=== PATIENT | female | born 1945 | race Caucasian/White ===

== ENCOUNTER → 2021-06-11 16:00 | Outpatient (CLI) | payer MEDICARE, SELFPAY | PROVIDERS: Family Provider Family Medicine; PCP Family Medicine; Visit Provider Family Medicine | DX: N39.0 Urinary tract infection, site not specified (principal) | CPT/HCPCS: 87086 ==

== ENCOUNTER → 2021-06-25 11:09 | Outpatient (CLI) | payer MEDICARE, SELFPAY ==
[2021-06-25 18:50] LABS: Add Manual Diff / Slide Review NO; Basophils Absolute Auto 100 /uL (0-100); Basophils Percent Auto 1.1 % (0-2); Eosinophils Absolute Auto 100 /uL (0-450); Eosinophils Percent Auto 1.9 % (2-4); Hematocrit 40.8 % (36-46); Hemoglobin 13.8 g/dL (12.0-16.0); Lymphocytes Absolute Auto 1700 /uL (1100-4500); Lymphocytes Percent Auto 24.1 % (25-40); Mean Corpuscular HGB Conc 33.7 % (30-36); Mean Corpuscular Hemoglobin 27.9 PG (26-34); Mean Corpuscular Volume 82.7 fL (80-100); Monocytes Absolute Auto 900 /uL (0-900); Monocytes Percent Auto 12.8 % (3-14); Neutrophils Absolute Auto 4100 /uL (1500-7000); Neutrophils Percent Auto 60.1 % (50-75); Platelet Count 326 X10^3/uL (150-400); Red Blood Cell Count 4.94 X10^6/uL (4.0-5.2); Red Cell Distribution Width 13.7 % (11.6-14.8); White Blood Cell Count 6.9 X10^3/uL (4.5-11.0)
[2021-06-25 18:54] LABS: BUN Creatinine Ratio 21.6 (6-22); Blood Urea Nitrogen 19 mg/dL (7-17); Calcium 9.2 mg/dL (8.4-10.2); Carbon Dioxide 30 mmol/L (22-32); Chloride 103 mmol/L (98-107); Estimated Glomerular Filt Rate > 60 mL/min (>60); Glucose 101 mg/dL (80-110); HEMOLYSIS < 15 (0-50); Potassium 4.3 mmol/L (3.4-5.1); Sodium 137 mmol/L (137-145)
[2021-06-25 19:12] LABS: Vitamin D 25 Hydroxy (D3) 57.6 ng/mL (30.0-100.0)
[2021-06-25 19:24] LABS: Cortisol Random 9.97 ug/dL
[2021-06-25 19:25] LABS: TSH w/ Reflex to FT4 1.37 uIU/mL (0.47-4.68)
[2021-06-25 19:43] LABS: Vitamin B12 725 pg/mL (239-931)
== END ==
PROVIDERS: Family Provider Family Medicine; PCP Family Medicine; Visit Provider Family Medicine
DX: F41.1 Generalized anxiety disorder (principal); R31.21 Asymptomatic microscopic hematuria; F34.1 Dysthymic disorder; Z85.118 Personal history of other malignant neoplasm of bronchus and lung; F30.8 Other manic episodes; F32.9 Major depressive disorder, single episode, unspecified; R53.83 Other fatigue
CPT/HCPCS: 80048; 82306; 82533; 82607; 84443; 85025

== ENCOUNTER 2022-01-19 08:43 | Emergency (ER) | payer MEDICARE, OTHER, SELFPAY ==
[2022-01-19] VITALS (7 sets, daily range): BP systolic 129–154; BP diastolic 63–71; PULSE 75–89; RESP 18–22; TEMP 36.7; O2SAT 96–99; BMI 22.1
--- NOTE | 2022-01-19 09:15 | DI.CT.S_ITS ---
PROCEDURE: CT ANGIO CHEST PE PROTOCOL INDICATIONS: hx of lung CA with RLL removed and SOB TECHNIQUE: After the administration of intravenous contrast, 2 mm thick sections acquired from the pulmonary apices to the posterior costophrenic angles. 3-dimensional maximum intensity projection (MIP) coronal and sagittal reformats were then acquired through the thorax. For radiation dose reduction, the following was used: automated exposure control, adjustment of mA and/or kV according to patient size. COMPARISON: [facility], CR, XR CHEST 2 VIEWS, 04/14/2019, 9:42. FINDINGS: Image quality: Excellent. Pulmonary arteries: Pulmonary arteries are normal in size, and demonstrate no intraluminal filling defects to suggest central pulmonary embolism. Lungs and pleura: Small scattered ground-glass opacities are seen in right lower lung field near right lung base. Mild dependent atelectasis in posterior aspect of left lower lobe is also seen. Reticular nodular thickening in periphery of bilateral lung johnston are noted. No pleural effusions or pneumothorax. Central and peripheral airways are patent. Mediastinum: Heart size is normal, without pericardial effusion. No mediastinal or hilar adenopathy. Thoracic aorta is normal in caliber and enhancement. Esophagus is normal in caliber, without hiatal hernia. Bones and chest wall: No suspicious bony lesions. Ribs and thoracic spine appear intact throughout. Thyroid gland is within normal limits. No axillary or supraclavicular adenopathy. Abdomen: Visualized upper abdominal solid organs appear normal in the early arterial phase of enhancement. IMPRESSION: 1. No evidence of pulmonary emboli. No thoracic aortic aneurysm or dissection. 2. Subtle patchy ground-glass opacities in right lower lung field near right lung base which may represent areas of subtle patchy pneumonitis. Mildly increased reticular nodular markings in periphery of bilateral lung johnston suggestive of mild small airway disease. Dependent atelectasis in posterior aspect of left lung base. No pleural effusion or pneumothorax. Airway is patent. 3. No mediastinal or hilar lymphadenopathy by size criteria. Dictated by: Rosey Kimball M.D. on 01/19/2022 at 10:19 Approved by: Rosey Kimball M.D. on 01/19/2022 at 10:23
--- NOTE | 2022-01-19 09:17 | ED_ITS ---
HPI - General Adult General Chief complaint: Abdominal Pain Stated complaint: right side abdminal pain Time Seen by Provider: 01/19/22 08:52 Source: patient Mode of arrival: Ambulatory History of Present Illness HPI narrative: 76-year-old female. History of lung cancer. Had a right lower lobe removed in 2009. Has had no follow-up since then. Is here for evaluation of right upper quadrant abdominal discomfort/right lower chest discomfort. The discomfort has just started over the past couple days however she states she is had progr essively worsening shortness of breath over the past couple months. She also reports decrease in appetite. No chest pain. No change in bowel habits. No urinary symptoms. No skin changes. Has not tried anything for the symptoms prior to arrival. Related Data Home Medications Medication Instructions Recorded Confirmed aripiprazole 5 mg tablet 10 mg PO DAILY 11/02/21 01/12/22 Previous Rx's Medication Instructions Recorded acetazolamide 125 mg tablet 125 mg PO DAILY #25 tabs 12/21/21 azithromycin 250 mg tablet See Rx Instructions PO .COMPLEX #6 01/19/22 tabs Allergies Allergy/AdvReac Type Severity Reaction Status Date / Time ciprofloxacin [CIPROFLOXACIN] Allergy Mild FROM CIPRO Verified 01/12/22 14:47 XR gentamicin [GENTAMICIN] Allergy Mild Verified 01/12/22 14:47 Sulfa (Sulfonamide Allergy Mild Verified 01/12/22 14:47 Antibiotics) [SULFA (SULFONAMIDE ANTIBIOTICS)] sulfamethoxazole Allergy Mild FROM Verified 01/12/22 14:47 [SULFAMETHOXAZOLE] TRIMETHOPRI..AND SULFAMETHOXAZOLE trimethoprim [TRIMETHOPRIM] Allergy Mild FROM Verified 01/12/22 14:47 SULFAMETHOXAZOLE AND TRIMETHOPRI... adhesive Allergy Verified 01/19/22 09:05 Latex, Natural Rubber Allergy Verified 01/19/22 09:05 albuterol AdvReac Severe heart Verified 01/12/22 14:47 racing hydrocodone AdvReac Severe psychiatric Verified 01/12/22 14:47 reaction diazepam AdvReac Verified 01/19/22 09:05 Review of Systems Constitutional Constitutional: Reports system reviewed and no additional complaints, except as documented Cardiovascular Cardiovascular: Reports system reviewed and no additional complaints, except as documented Respiratory Respiratory: Reports system reviewed and no additional complaints, except as documented Gastrointestinal Gastrointestinal: Reports system reviewed and no additional complaints, except as documented Genitourinary Genitourinary: Reports system reviewed and no additional complaints, except as documented Integumentary/Breasts Skin/Breast: Reports system reviewed and no additional complaints, except as documented Neurologic Neurologic: Reports system reviewed and no additional complaints, except as documented Hematologic/Lymphatic On Anticoagulants: No Patient History Medical History Abnormal Pap smear of cervix (~1979) Allergies Anemia Asthma Cancer Cardiac arrhythmia Encounter for altitude sickness prophylaxis Fibrocystic breast disease Hair loss Hematuria Hemorrhoid Herpes History of urinary incontinence Hypothyroidism (~1963) Kidney stones Measles Mumps Osteoarthritis (~1999) Ovarian cyst Painful menstrual periods (~1958) PID (pelvic inflammatory disease) Plantar warts Positive PPD PTSD (post-traumatic stress disorder) Rheumatic fever (~1950) Rheumatoid arthritis (~1968) Rosacea Tachycardia (~1966) Tinnitus Vertigo Surgical History Anesthesia History of lobectomy of lung (~2009) History of salpingoophorectomy (~1969) History of tonsillectomy and adenoidectomy (~1949) Hx of appendectomy Status post partial removal of lung Family History Mother Stroke Father Kidney disease Cancer Drug interaction Sister Bone cancer Breast cancer Son Heart disease Sister Breast cancer Rectal cancer Dementia Status post chemotherapy Family/Other Kidney disease Grandmother Breast cancer Stroke Grandfather Stroke Other Sudden cardiac Social History Smoking Status: Former smoker Smoking Status: Former smoker Substance Use Type: does not use Exam Initial Vital Signs Initial Vital Signs: Vital Signs Temperature 98.1 F 01/19/22 09:05 Pulse Rate 75 01/19/22 09:05 Respiratory Rate 22 01/19/22 09:05 Blood Pressure 137/63 01/19/22 09:05 Pulse Oximetry 99 01/19/22 09:05 Oxygen Delivery Method 01/19/22 09:05 Const General: cooperative, comfortable and No ill appearing HENMT Head: normal to inspection and normocephalic Chest Other: Relatively pinpoint tenderness to palpation along the lower ribs on the right. Resp Effort & Inspection: normal respiratory effort Auscultation: clear to auscultation bilaterally Cardio Rate: regular rate Rhythm: regular rhythm GI Inspection: normal to inspection and non-distended Palpation: soft and No tender Skin General: no rashes or lesions noted Neuro General: patient alert, patient awake and moves all extremities Extrem General: No edema Psych Appearance: grossly normal Course Orders Ordered: ED Orders 01/19/22 09:00 Complete Blood Count AUTO DIFF Stat Comprehensive Metabolic Panel Stat Lipase Stat NT-proBNP (BNP-Adult 18+) Stat Troponin & CK Cardiac Panel Stat 01/19/22 09:15 CT angio chest PE protocol Stat 01/19/22 09:16 EKG-12 Lead Stat Discontinued Medications Sodium Chloride (Normal Saline 0.9%) 1,000 mls @ 1,000 mls/hr IV BOLUS ONE Stop: 01/19/22 10:14 Last Admin: 01/19/22 09:47 Dose: 1,000 mls/hr Documented By: NIHARIKA Vital Signs Vital signs: Vital Signs - 8 hr 01/19/22 09:05 Temperature 98.1 F Pulse Rate 75 Respiratory Rate 22 Blood Pressure 137/63 Pulse Oximetry 99 Oxygen Delivery Method Room Air Medical Decision Making Lab Data Lab results reviewed: Yes I reviewed the patient's lab results. Result diagrams: 01/19/22 09:00 01/19/22 09:00 Labs: Lab Results 01/19/22 01/19/22 01/19/22 Range/Units 09:00 09:00 09:00 WBC 8.3 (4.5-11.0) X10^3/uL RBC 4.84 (4.0-5.2) X10^6/uL Hgb 13.3 (12.0-16.0) g/dL Hct 40.3 (36-46) % MCV 83.2 (80-100) fL MCH 27.5 (26-34) PG MCHC 33.0 (30-36) % RDW 13.7 (11.6-14.8) % Plt Count 315 (150-400) X10^3/uL Neut % (Auto) 67.1 (50-75) % Lymph % (Auto) 19.9 L (25-40) % [place] % (Auto) 10.3 (3-14) % Eos % (Auto) 1.5 L (2-4) % Baso % (Auto) 1.2 (0-2) % Neut # (Auto) 5600 (9450-6070) /uL Lymph # (Auto) 1700 (8100-0884) /uL [place] # (Auto) 900 (0-900) /uL Eos # (Auto) 100 (0-450) /uL Baso # (Auto) 100 (0-100) /uL Sodium 136 L (137-145) mmol/L Potassium 4.3 (3.4-5.1) mmol/L Chloride 104 (98-107) mmol/L Carbon Dioxide 26 (22-32) mmol/L BUN 16 (7-17) mg/dL Creatinine 0.82 (0.52-1.04) mg/dL Estimated GFR > 60 (>60) mL/min BUN/Creatinine Ratio 19.5 (6-22) Glucose 98 (80-110) mg/dL Calcium 9.2 (8.4-10.2) mg/dL Total Bilirubin 0.4 (0.2-1.3) mg/dL AST 44 H (14-36) IU/L ALT 25 (<35) IU/L Alkaline Phosphatase 53 (38-126) U/L Total Creatine Kinase 86 (30-135) U/L CK-MB (CK-2) TNP CK-MB (CK-2) Rel Index TNP Troponin I < 0.012 (0.01-0.034) ng/mL NT-Pro-B Natriuret Pep 213 (<450) pg/mL Total Protein 7.0 (6.3-8.2) g/dL Albumin 4.2 (3.5-5.0) g/dL Globulin 2.8 (1.7-4.1) g/dL Albumin/Globulin Ratio 1.5 (1.0-2.8) Lipase 167 (23-300) U/L Urine Dip Bedside Urine Glucose Negative Bedside Urine Bilirubin - Negative Bedside Urine Ketone - Negative Urine Specific [place] 1.010 Bedside Urine Occult Blood + Bedside Urine pH 7.0 Bedside Urine Protein - Negative Bedside Urine Urobilinogen - Negative Bedside Urine Nitrite - Negative Bedside Urine Leukocytes - Negative Esterase Point of care testing: Urine Dip Bedside Urine Glucose Negative Bedside Urine Bilirubin - Negative Bedside Urine Ketone - Negative Urine Specific [place] 1.010 Bedside Urine Occult Blood + Bedside Urine pH 7.0 Bedside Urine Protein - Negative Bedside Urine Urobilinogen - Negative Bedside Urine Nitrite - Negative Bedside Urine Leukocytes - Negative Esterase Imaging Data CT scan - chest: Radiologist's Impression: [address] [id number] [address] Scan Report Signed Patient: Priscilla Ernandez MR#: [id number] : 1945 Acct:[id number] Age/Sex: 76 / F Date of Service: 01/19/22 Loc: ED Accession Number: [id number] ?? Procedure: CT angio chest PE protocol Ordering Provider: Julius Urena D.O. PROCEDURE:? CT ANGIO CHEST PE PROTOCOL ? INDICATIONS:? hx of lung CA with RLL removed and SOB ? TECHNIQUE:? After the administration of intravenous contrast, 2 mm thick sections acquired from the pulmonary apices to the posterior costophrenic angles.? 3-dimensional maximum intensity projection (MIP) coronal and sagittal reformats were then acquired through the thorax.? For radiation dose reduction, the following was used:? automated exposure control, adjustment of mA and/or kV according to patient size.? ? COMPARISON:? [facility], CR, XR CHEST 2 VIEWS, 04/14/2019, 9:42. ? FINDINGS:? Image quality:? Excellent.? ? Pulmonary arteries:? Pulmonary arteries are normal in size, and demonstrate no intraluminal filling defects to suggest central pulmonary embolism.? ? Lungs and pleura:? Small scattered ground-glass opacities are seen in right lower lung field near right lung base.? Mild dependent atelectasis in posterior aspect of left lower lobe is also seen.? Reticular nodular thickening in periphery of bilateral lung johnston are noted.? No pleural effusions or pneumothorax.? Central and peripheral airways are patent.? ? Mediastinum:? Heart size is normal, without pericardial effusion.? No mediastinal or hilar adenopathy.? Thoracic aorta is normal in caliber and enhancement.? Esoph azam is normal in caliber, without hiatal hernia.? ? Bones and chest wall:? No suspicious bony lesions.? Ribs and thoracic spine appear intact throughout.? Thyroid gland is within normal limits.? No axillary or supraclavicular adenopathy.? ? Abdomen:? Visualized upper abdominal solid organs appear normal in the early arterial phase of enhancement.? ? IMPRESSION:? 1. No evidence of pulmonary emboli.? No thoracic aortic aneurysm or dissection. ? 2. Subtle patchy ground-glass opacities in right lower lung field near right lung base which may represent areas of subtle patchy pneumonitis.? Mildly increased reticular nodular markings in periphery of bilateral lung johnston suggestive of mild small airway disease.? Dependent atelectasis in posterior aspect of left lung base.? No pleural effusion or pneumothorax.? Airway is patent. ? 3. No mediastinal or hilar lymphadenopathy by size criteria.? ? ? Dictated by: Rosey Kimball M.D. on 01/19/2022 at 10:19 ? ? Approved by: Rosey Kimball M.D. on 01/19/2022 at 10:23? ECG Data Attestation: I personally reviewed and interpreted this ECG as follows: Interpretation: Sinus rhythm Ventricular rate is 69 Right bundle branch block QRS 130 milliseconds Normal QTC No ST T wave changes MDM Narrative Medical decision making narrative: Patient does have a history of lung cancer and has not had any follow-up since her lobectomy back in 2009. The CT scan today shows no concerns for return of lung cancer. There are some opacities in the right lower lung that could be consistent with pneumonia. She is not had any fevers but does have a productive cough that has worsened over the past couple weeks. Her LFTs are unremarkable. Given the location of the pain to consider gallbladder pathology but feel that this is unlikely. Her discomfort seems to be isolated over the lower ribs. I suspect that this is intercostal muscle pain secondary to her coughing. No skin changes over the area concerning for zoster. Plan to be is to start her on a course of antibiotics. We will see if this helps her cough and also her shortness of breath. She was also instructed that she needed to contact her primary doctor for follow-up especially if her symptoms do not improve with the antibiotics. Patient expressed understanding and agreement with plan. Discharge Plan Departure Patient Disposition: Home Clinical Impression: Pneumonia Instructions: Pneumonia-Adult Activity Restrictions/Additional Instructions: The CT scan today does show findings that could be consistent with an infection. We call this pneumonia. I do think that we start you on antibiotics. Please fill the prescription and start taking it as directed. You do need follow-up with your primary doctor especially if the antibiotics do not improve your symptoms. I suspect that the pain on the right side of your chest is related to the muscles that are in between your ribs I suspect that this will get better when your coughing improves and hopefully this will happened with the antibiotics. Prescriptions: New azithromycin 250 mg tablet See Rx Instructions .ROUTE .COMPLEX Qty: 6 0RF Rx Instructions: For 250 mg dose pack: take 500 mg today (day 1), then 250 mg for 4 days (days 2-5) No Action acetazolamide 125 mg tablet 125 mg PO DAILY Qty: 25 0RF Rx Instructions: TAKE ONE TABLET BY MOUTH EVERY DAY STARTING 24 HOURS PRIOR TO ASCENT AND CONTINUE UNTIL 24 HOURS AFTER DESCENT aripiprazole 5 mg tablet 10 mg PO DAILY Referrals: Evonne Grant MD [Primary Care Provider] -
[2022-01-19 09:23] LABS: Add Manual Diff / Slide Review NO; Basophils Absolute Auto 100 /uL (0-100); Basophils Percent Auto 1.2 % (0-2); Eosinophils Absolute Auto 100 /uL (0-450); Eosinophils Percent Auto 1.5 % (2-4); Hematocrit 40.3 % (36-46); Hemoglobin 13.3 g/dL (12.0-16.0); Lymphocytes Absolute Auto 1700 /uL (1100-4500); Lymphocytes Percent Auto 19.9 % (25-40); Mean Corpuscular Hemoglobin 27.5 PG (26-34); Mean Corpuscular Volume 83.2 fL (80-100); Monocytes Absolute Auto 900 /uL (0-900); Monocytes Percent Auto 10.3 % (3-14); Neutrophils Absolute Auto 5600 /uL (1500-7000); Neutrophils Percent Auto 67.1 % (50-75); Platelet Count 315 X10^3/uL (150-400); Red Blood Cell Count 4.84 X10^6/uL (4.0-5.2); Red Cell Distribution Width 13.7 % (11.6-14.8); White Blood Cell Count 8.3 X10^3/uL (4.5-11.0)
[2022-01-19 09:35] LABS: Alanine Aminotransferase 25 IU/L (<35); Albumin 4.2 g/dL (3.5-5.0); Albumin Globulin Ratio 1.5 (1.0-2.8); Alkaline Phosphatase 53 U/L (38-126); Aspartate Aminotransferase 44 IU/L (14-36); BUN Creatinine Ratio 19.5 (6-22); Bilirubin Total 0.4 mg/dL (0.2-1.3); Blood Urea Nitrogen 16 mg/dL (7-17); Calcium 9.2 mg/dL (8.4-10.2); Carbon Dioxide 26 mmol/L (22-32); Chloride 104 mmol/L (98-107); Creatine Kinase 86 U/L (30-135); Estimated Glomerular Filt Rate > 60 mL/min (>60); Globulin 2.8 g/dL (1.7-4.1); Glucose 98 mg/dL (80-110); HEMOLYSIS < 15 (0-50); Lipase 167 U/L (23-300); Potassium 4.3 mmol/L (3.4-5.1); Sodium 136 mmol/L (137-145)
[2022-01-19 09:46] LABS: NT-proBNP (BNP-Adult 18+) 213 pg/mL (<450); Troponin I < 0.012 ng/mL (0.01-0.034)
[2022-01-19] MEDS: SODIUM CHLORIDE 0.9% 1,000 ML 1000 ML IV (09:47)
[2022-01-19 11:56] LABS: TSH w/ Reflex to FT4 1.81 uIU/mL (0.47-4.68)
== END 2022-01-19 11:35 | disposition home or self-care (01) ==
PROVIDERS: Family Medicine; Emergency Provider Emergency Medicine; Family Provider Family Medicine; PCP Family Medicine
DX: J18.9 Pneumonia, unspecified organism (principal); R07.9 Chest pain, unspecified; Z79.899 Other long term (current) drug therapy; Z85.118 Personal history of other malignant neoplasm of bronchus and lung
CPT/HCPCS: 36415; 71275; 80053; 81003; 82550; 83690; 83880; 84443; 84484; 85025; 93005; 93010; 96360; 99284; Q9967

== ENCOUNTER → 2022-01-28 11:53 | Outpatient (CLI) | payer MEDICARE, OTHER, SELFPAY ==
[2022-01-28 20:46] LABS: Add Manual Diff / Slide Review NO; Basophils Absolute Auto 100 /uL (0-100); Basophils Percent Auto 1.3 % (0-2); Eosinophils Absolute Auto 100 /uL (0-450); Eosinophils Percent Auto 1.8 % (2-4); Hematocrit 40.3 % (36-46); Hemoglobin 13.1 g/dL (12.0-16.0); Lymphocytes Absolute Auto 1800 /uL (1100-4500); Lymphocytes Percent Auto 28.2 % (25-40); Mean Corpuscular HGB Conc 32.6 % (30-36); Mean Corpuscular Hemoglobin 27.1 PG (26-34); Mean Corpuscular Volume 83.1 fL (80-100); Monocytes Absolute Auto 600 /uL (0-900); Neutrophils Absolute Auto 3800 /uL (1500-7000); Neutrophils Percent Auto 58.7 % (50-75); Platelet Count 355 X10^3/uL (150-400); Red Blood Cell Count 4.85 X10^6/uL (4.0-5.2); Red Cell Distribution Width 13.5 % (11.6-14.8); White Blood Cell Count 6.4 X10^3/uL (4.5-11.0)
[2022-01-28 21:38] LABS: Erythrocyte Sedimentation Rate 7 MM/HR (0-20)
[2022-01-29 08:58] LABS: Alanine Aminotransferase 20 IU/L (<35); Albumin 4.3 g/dL (3.5-5.0); Albumin Globulin Ratio 1.5 (1.0-2.8); Alkaline Phosphatase 62 U/L (38-126); Aspartate Aminotransferase 24 IU/L (14-36); BUN Creatinine Ratio 21.3 (6-22); Bilirubin Total 0.2 mg/dL (0.2-1.3); Blood Urea Nitrogen 16 mg/dL (7-17); Calcium 9.2 mg/dL (8.4-10.2); Carbon Dioxide 25 mmol/L (22-32); Chloride 104 mmol/L (98-107); Estimated Glomerular Filt Rate > 60 mL/min (>60); Globulin 2.8 g/dL (1.7-4.1); Glucose 96 mg/dL (80-110); HEMOLYSIS < 15 (0-50); Potassium 4.3 mmol/L (3.4-5.1); Sodium 138 mmol/L (137-145); Total Protein 7.1 g/dL (6.3-8.2)
[2022-01-29 09:10] LABS: C-Reactive Protein Quant < 0.5 mg/dL (<1.0)
[2022-02-02 17:11] LABS: ANA Screen, IFA Positive (.)
[2022-03-02 02:44] LABS: Alpha 1 Antitrypsin 118
== END ==
PROVIDERS: Family Provider Family Medicine; PCP Family Medicine; Visit Provider Family Medicine
DX: J18.9 Pneumonia, unspecified organism (principal); J44.9 Chronic obstructive pulmonary disease, unspecified; J45.909 Unspecified asthma, uncomplicated; R05.9 Cough, unspecified; R06.02 Shortness of breath; R07.9 Chest pain, unspecified; R79.89 Other specified abnormal findings of blood chemistry; Z90.2 Acquired absence of lung [part of]
CPT/HCPCS: 80053; 81332; 82103; 85025; 85651; 86038; 86140

== ENCOUNTER → 2022-10-12 13:34 | Outpatient (CLI) | payer MEDICARE, OTHER, SELFPAY ==
[2022-10-12 20:30] LABS: Add Manual Diff / Slide Review NO; Basophils Absolute Auto 100 /uL (0-100); Basophils Percent Auto 0.9 % (0-2); Eosinophils Absolute Auto 300 /uL (0-450); Eosinophils Percent Auto 3.7 % (2-4); Hematocrit 38.5 % (36-46); Hemoglobin 12.8 g/dL (12.0-16.0); Lymphocytes Absolute Auto 1900 /uL (1100-4500); Lymphocytes Percent Auto 26.1 % (25-40); Mean Corpuscular HGB Conc 33.3 % (30-36); Mean Corpuscular Hemoglobin 27.9 PG (26-34); Mean Corpuscular Volume 83.6 fL (80-100); Monocytes Absolute Auto 800 /uL (0-900); Monocytes Percent Auto 11.2 % (3-14); Neutrophils Absolute Auto 4300 /uL (1500-7000); Neutrophils Percent Auto 58.1 % (50-75); Platelet Count 345 X10^3/uL (150-400); Red Cell Distribution Width 13.4 % (11.6-14.8); White Blood Cell Count 7.5 X10^3/uL (4.5-11.0)
[2022-10-12 21:01] LABS: HEMOLYSIS < 15 (0-50)
[2022-10-12 21:12] LABS: Alanine Aminotransferase 24 IU/L (<35); Albumin 4.4 g/dL (3.5-5.0); Albumin Globulin Ratio 1.6 (1.0-2.8); Alkaline Phosphatase 50 U/L (38-126); Aspartate Aminotransferase 31 IU/L (14-36); BUN Creatinine Ratio 15.4 (6-22); Bilirubin Total 0.4 mg/dL (0.2-1.3); Bilirubin Unconjugated 0.3 mg/dL (0.0-1.1); Blood Urea Nitrogen 12 mg/dL (7-17); Calcium 9.6 mg/dL (8.4-10.2); Carbon Dioxide 28 mmol/L (22-32); Chloride 102 mmol/L (98-107); Cholesterol 210 mg/dL (140-199); Estimated Glomerular Filt Rate > 60 mL/min (>60); Globulin 2.7 g/dL (1.7-4.1); Glucose 94 mg/dL (80-110); HDL Cholesterol 97 mg/dL (40-60); LDL Cholesterol Calculated 100 mg/dL (<100); Potassium 4.5 mmol/L (3.4-5.1); Sodium 138 mmol/L (137-145); Total Protein 7.1 g/dL (6.3-8.2); Triglycerides 67 mg/dL (35-150)
[2022-10-12 21:36] LABS: TSH w/ Reflex to FT4 1.86 uIU/mL (0.47-4.68)
[2022-10-12 22:03] LABS: Vitamin B12 831 pg/mL (239-931)
[2022-10-15 17:08] LABS: Albumin 3.8 g/dL (2.9-4.4); Alpha-1-Globulin 0.2 g/dL (0.0-0.4); Alpha-2-Globulin 0.8 g/dL (0.4-1.0); Protein, Total 6.8 g/dL (6.0-8.5)
== END ==
PROVIDERS: Family Provider Family Medicine; PCP Family Medicine; Visit Provider Family Medicine
DX: F33.1 Major depressive disorder, recurrent, moderate (principal); R79.89 Other specified abnormal findings of blood chemistry; F30.8 Other manic episodes; J44.9 Chronic obstructive pulmonary disease, unspecified; L65.9 Nonscarring hair loss, unspecified; F32.9 Major depressive disorder, single episode, unspecified; J18.9 Pneumonia, unspecified organism; J45.909 Unspecified asthma, uncomplicated; R05.9 Cough, unspecified; Z90.2 Acquired absence of lung [part of]; R07.9 Chest pain, unspecified; R06.02 Shortness of breath
CPT/HCPCS: 80053; 80061; 80076; 82607; 84155; 84165; 84443; 85025

== ENCOUNTER 2022-12-06 10:02 | Emergency (ER) | payer MEDICARE, OTHER, SELFPAY ==
[2022-12-06] VITALS (7 sets, daily range): BP systolic 108–142; BP diastolic 55–74; PULSE 62–82; RESP 18; TEMP 36.6; O2SAT 97–98; BMI 21.4
--- NOTE | 2022-12-06 10:29 | ED_ITS ---
HPI - Female Genitourinary General Chief complaint: Urogenital-Female Stated complaint: bulge on Cervix, blood in underwear Time Seen by Provider: 12/06/22 10:18 Source: patient Mode of arrival: Ambulatory History of Present Illness HPI Narrative: 77-year-old female presents for a bulge in her pelvic region. Patient states that she wears adult diapers due to occasional urinary incontinence. This morning she noticed a small amount of blood in her diaper. She took a mirror and looked between her legs and said that she saw a bulge. She became very concerned and came over on the [place]. She initially went to the OBGYN office, however they did not have any availability and they referred her to the emergency department for workup. Patient states her primary concern is cancer. Has not had a pelvic exam or OBGYN evaluation in many years. Three previous vaginal deliveries. Reports history of uterine fibroids. Patient currently denies symptoms. Related Data Previous Rx's Medication Instructions Recorded acetazolamide 125 mg tablet 125 mg PO DAILY PRN altitude 01/28/22 sickness #25 tabs Allergies Allergy/AdvReac Type Severity Reaction Status Date / Time ciprofloxacin [CIPROFLOXACIN] Allergy Mild FROM CIPRO Verified 10/15/22 08:46 XR gentamicin [GENTAMICIN] Allergy Mild Verified 10/15/22 08:46 Sulfa (Sulfonamide Allergy Mild Verified 10/15/22 08:46 Antibiotics) [SULFA (SULFONAMIDE ANTIBIOTICS)] sulfamethoxazole Allergy Mild FROM Verified 10/15/22 08:46 [SULFAMETHOXAZOLE] TRIMETHOPRI..AND SULFAMETHOXAZOLE trimethoprim [TRIMETHOPRIM] Allergy Mild FROM Verified 10/15/22 08:46 SULFAMETHOXAZOLE AND TRIMETHOPRI... adhesive Allergy Verified 10/15/22 08:46 Latex, Natural Rubber Allergy Verified 10/15/22 08:46 albuterol AdvReac Severe heart Verified 10/15/22 08:46 racing hydrocodone AdvReac Severe psychiatric Verified 10/15/22 08:46 reaction diazepam AdvReac Verified 10/15/22 08:46 Review of Systems Review of Systems Narrative: Negative except as noted. Patient History Medical History (Updated 12/06/22 @ 14:11 by Bing Flynn MD) Encounter for hepatitis C screening test for low risk patient Rosacea Plantar warts PTSD (post-traumatic stress disorder) Rheumatic fever (~1951) Positive PPD Mumps Measles Herpes Vertigo Tinnitus PID (pelvic inflammatory disease) Painful menstrual periods (~195) Ovarian cyst Abnormal Pap smear of cervix (~1979) Kidney stones Fibrocystic breast disease Hemorrhoid Encounter for altitude sickness prophylaxis Cancer Asthma Anemia Hematuria Surgical History (Updated 01/28/22 @ 07:21 by Rolly Bain MD) Anesthesia History of lobectomy of lung (~2009) History of tonsillectomy and adenoidectomy (~1949) History of salpingoophorectomy (~1969) Status post partial removal of lung Hx of appendectomy Family History Mother Stroke Father Kidney disease Cancer Drug interaction Sister Bone cancer Breast cancer Son Heart disease Sister Breast cancer Rectal cancer Dementia Status post chemotherapy Family/Other Kidney disease Grandmother Breast cancer Stroke Grandfather Stroke Other Sudden cardiac alcohol intake frequency: other Substance Use Type: does not use Exam Initial Vital Signs Initial Vital Signs: Vital Signs Temperature 97.9 F 12/06/22 10:12 Pulse Rate 82 12/06/22 10:12 Respiratory Rate 18 12/06/22 10:12 Blood Pressure 142/70 H 12/06/22 10:12 Pulse Oximetry 97 12/06/22 10:12 Oxygen Delivery Method Room Air 12/06/22 10:12 Const: Awake, alert, no acute distress, nontoxic appearing Eyes: PERRL, EOMI, conjunctiva normal ENT: Atraumatic, dentition normal, mucous membranes moist Cardiac: regular rate, regular rhythm RESP: unlabored, clear bilaterally, no wheezing GI: Atraumatic, soft, nontender, nondistended, no rebound, no guarding : Solutions Sales Consultant present, irritation around the urethra, no obvious prolapse, no blood in vaginal vault, cervix normal, no cervical motion tenderness MSK: Atraumatic, full range of motion, pulses equal Skin: Warm, Dry, intact, no rashes Neuro: AO x3, CN II-XII grossly intact, moves all extremities Psych: affect normal, mood normal, not suicidal, not homicidal Course Course Course Narrative: Episode of blood in brief, no current bleeding, patient reported a bulge at home and is worried about cancer. No obvious physical exam abnormalities, we will order urine and ultrasound. Patient states she is not want any blood work done. Lab work reviewed from 2 months ago was normal Orders Ordered: ED Orders 12/06/22 10:49 US pelvic complete Stat 12/06/22 11:04 UA Complete [Urinalysis and Microscopic] Stat Reevaluation(s) Reevaluation #1: UA negative for infection. US showed fibroids, no evidence of cancerous process. Patient informed of results, she was encouraged to follow up formally with [facility]. May use vagisil cream for discomfort. Vital Signs Vital signs: Vital Signs - 8 hr 12/06/22 10:12 12/06/22 11:00 12/06/22 11:31 Temperature 97.9 F Pulse Rate 82 75 74 Respiratory Rate 18 18 18 Blood Pressure 142/70 H 120/60 119/64 Pulse Oximetry 97 97 97 Oxygen Delivery Method Room Air Room Air Room Air 12/06/22 12:05 12/06/22 12:39 12/06/22 13:35 Temperature Pulse Rate 71 77 75 Respiratory Rate 18 18 18 Blood Pressure 119/62 110/55 L 108/56 L Pulse Oximetry 97 98 98 Oxygen Delivery Method Room Air Room Air Room Air MDM - Female Genitourinary Lab Data Labs: Lab Results 12/06/22 Range/Units 11:04 Urine Color Yellow Urine Appearance Clear Urine pH 5.5 (4.5-8.0) Ur Specific [place] <=1.005 (1.000-1.035) Urine Protein Negative (Negative) Urine Glucose (UA) Negative (Negative) g/dL Urine Ketones Negative (NEGATIVE) Urine Occult Blood 1+ H (Negative) Urine Nitrate Negative (Negative) Urine Bilirubin Negative (NEGATIVE) Urine Urobilinogen 0.2 (0.2) E.U./dL Ur Leukocyte Esterase Negative (NEGATIVE) Urine RBC 1-5/hpf (0-5/HPF) Urine WBC None seen (0-5/HPF) Ur Squamous Epith Cells 0-1 /hpf (0-5/HPF) Urine Bacteria None seen (None) Ur Culture Indicated? Cult not indicated Discharge Plan Departure Patient Disposition: Home Clinical Impression: Fibroid uterus Instructions: DI for Uterine Fibroids Prescriptions: No Action acetazolamide 125 mg tablet 125 mg PO DAILY PRN (Reason: altitude sickness) Qty: 25 0RF Rx Instructions: TAKE ONE TABLET BY MOUTH EVERY DAY STARTING 24 HOURS PRIOR TO ASCENT AND CONTINUE UNTIL 24 HOURS AFTER DESCENT Referrals: Carlee Pearce MD [Physician] - Rolly Bain MD [Primary Care Provider] - Stand Alone Forms: Patient Portal/API
--- NOTE | 2022-12-06 10:49 | DI.US.S_ITS ---
PROCEDURE: US PELVIC COMPLETE INDICATIONS: VAGINAL BLEEDING TECHNIQUE: Real-time scanning was performed of the pelvic organs, with image documentation. Additional endovaginal scanning was necessary due to incomplete visualization of the adnexal and endometrial structures by transabdominal scanning. COMPARISON: None. FINDINGS: Uterus: Uterus is borderline enlarged measuring 9.9 x 6.7 x 8.3 cm. The myometrium is heterogeneous. The endometrium measures 4.4 mm combined thickness. There are 2 foci of heterogeneous echogenicity within the uterus. The 1st is in the fundal region subserosal measuring 4.1 x 3.9 x 3.5 cm. The 2nd is in the left posterior region measuring 4.4 x 3.7 x 2.4 cm. Ovaries: Ovaries are not visualized. Other: No pathologic free abdominal or pelvic fluid. IMPRESSION: Foci of uterine heterogeneous echogenicity most suggestive of fibroids. We strive to produce accurate, complete, and clear reports of imaging services. To assist us in improving patient care, this report was composed using standard report templates and voice recognition software. Therefore, it may contain abnormal punctuation, insertions and/or omissions. Occasional wrong-word or sound-alike substitutions may occur. Though we review the report and make efforts to correct it, we do recommend that the report be read carefully in proper context to recognize any text inaccuracies. Dictated by: Rosey Kimball M.D. on 12/06/2022 at 14:04 Approved by: Rosey Kimball M.D. on 12/06/2022 at 14:05
[2022-12-06 11:18] LABS: Appearance Urine UA CLEAR; Bilirubin Urine UA NEGATIVE (NEGATIVE); Color Urine UA YELLOW; Glucose Urine UA NEGATIVE (Negative); Ketones Urine UA NEGATIVE (NEGATIVE); Leukocyte Esterase Urine UA NEGATIVE (NEGATIVE); Nitrite Urine UA NEGATIVE (Negative); Occult Blood Urine UA 1+ (Negative); Protein Urine UA NEGATIVE (Negative); Specific Gravity Urine UA <=1.005 (1.000-1.035); Urobilinogen Urine UA 0.2 E.U./dL (0.2)
[2022-12-06 11:20] LABS: pH Urine UA 5.5 (4.5-8.0)
[2022-12-06 11:22] LABS: Bacteria Urine None Seen; RBC Urine 1-5/HPF (0-5/HPF); Squamous Epithelial Cell Urine 0-1 /HPF (0-5/HPF); WBC Urine None Seen (0-5/HPF)
[2022-12-06 11:23] LABS: Culture Indicated Urine Cult Not Indicated
== END 2022-12-06 14:36 | disposition home or self-care (01) ==
PROVIDERS: Emergency Provider Emergency Medicine; Family Provider Family Medicine; PCP Family Medicine
DX: D25.9 Leiomyoma of uterus, unspecified (principal)
CPT/HCPCS: 76830; 76856; 81001; 99283

== ENCOUNTER → 2023-02-01 11:55 | Outpatient (CLI) | payer MEDICARE, OTHER, SELFPAY ==
[2023-02-01 20:38] LABS: Creatinine Urine Random 63.3 mg/dL
[2023-02-01 20:45] LABS: Microalbumin Urine Random < 0.6 mg/dL (0-1.6)
== END ==
PROVIDERS: Family Provider Family Medicine; PCP Family Medicine; Visit Provider Physician Assistant
DX: Z91.89 Other specified personal risk factors, not elsewhere classified (principal)
CPT/HCPCS: 82043; 82570

== ENCOUNTER → 2023-10-18 08:38 | Outpatient (CLI) | payer MEDICARE, OTHER, SELFPAY ==
[2023-10-18 20:21] LABS: Hemoglobin A1C% w Est Avg Glu 5.6 % (4.0-6.0)
[2023-10-18 20:25] LABS: Add Manual Diff / Slide Review NO; Basophils Absolute Auto 100 /uL (0-100); Basophils Percent Auto 1.4 % (0-2); Eosinophils Absolute Auto 300 /uL (0-450); Eosinophils Percent Auto 4.1 % (2-4); Hemoglobin 12.8 g/dL (12.0-16.0); Lymphocytes Absolute Auto 1700 /uL (1100-4500); Lymphocytes Percent Auto 22.4 % (25-40); Mean Corpuscular HGB Conc 32.9 % (30-36); Mean Corpuscular Hemoglobin 26.6 PG (26-34); Mean Corpuscular Volume 80.7 fL (80-100); Monocytes Absolute Auto 800 /uL (0-900); Monocytes Percent Auto 10.8 % (3-14); Neutrophils Absolute Auto 4700 /uL (1500-7000); Neutrophils Percent Auto 61.3 % (50-75); Platelet Count 382 X10^3/uL (150-400); Red Blood Cell Count 4.83 X10^6/uL (4.0-5.2); Red Cell Distribution Width 13.3 % (11.6-14.8); White Blood Cell Count 7.7 X10^3/uL (4.5-11.0)
[2023-10-18 20:31] LABS: Alanine Aminotransferase 21 IU/L (<35); Albumin 4.2 g/dL (3.5-5.0); Albumin Globulin Ratio 1.6 (1.0-2.8); Alkaline Phosphatase 59 U/L (38-126); Aspartate Aminotransferase 33 IU/L (14-36); BUN Creatinine Ratio 21.4 (6-22); Bilirubin Total 0.6 mg/dL (0.2-1.3); Blood Urea Nitrogen 18 mg/dL (7-17); Calcium 9.5 mg/dL (8.4-10.2); Carbon Dioxide 26 mmol/L (22-32); Chloride 104 mmol/L (98-107); Estimated Glomerular Filt Rate > 60 mL/min (>60); Globulin 2.6 g/dL (1.7-4.1); Glucose 110 mg/dL (80-110); HEMOLYSIS < 15 (0-50); Magnesium 2.1 mg/dL (1.6-2.3); Potassium 4.6 mmol/L (3.4-5.1); Sodium 138 mmol/L (137-145); Total Protein 6.8 g/dL (6.3-8.2)
[2023-10-18 20:55] LABS: TSH w/ Reflex to FT4 1.57 uIU/mL (0.47-4.68)
[2023-10-18 21:05] LABS: Cortisol AM (Before 10AM) 14.2 ug/dL (4.46-22.7)
[2023-10-18 21:08] LABS: Ferritin 9 ng/mL (11-264)
== END ==
PROVIDERS: Family Provider Family Medicine; PCP Family Medicine; Visit Provider Family Medicine
DX: I49.9 Cardiac arrhythmia, unspecified (principal); R73.03 Prediabetes; R25.2 Cramp and spasm; T70.29XA Other effects of high altitude, initial encounter; R55 Syncope and collapse; R00.2 Palpitations
CPT/HCPCS: 80053; 82533; 82728; 83036; 83735; 84443; 85025

== ENCOUNTER → 2023-10-31 10:03 | Outpatient (CLI) | payer MEDICARE, OTHER, SELFPAY ==
[2023-10-31 19:29] LABS: Reticulocyte Count, Percent 0.6 % (1.1-2.6)
[2023-10-31 19:30] LABS: HEMOLYSIS < 15 (0-50); Iron 140 ug/dL (37-170)
[2023-10-31 19:48] LABS: Percent Iron Saturation 38 % (15-50); Total Iron Binding Capacity 372 ug/dL (265-497); Transferrin 313 mg/dL (206-381)
[2023-10-31 19:49] LABS: Hematocrit 39.3 % (36-46); Hemoglobin 12.6 g/dL (12.0-16.0); Mean Corpuscular HGB Conc 32.1 % (30-36); Mean Corpuscular Hemoglobin 26.1 PG (26-34); Mean Corpuscular Volume 81.1 fL (80-100); Platelet Count 343 X10^3/uL (150-400); Red Blood Cell Count 4.85 X10^6/uL (4.0-5.2); White Blood Cell Count 6.7 X10^3/uL (4.5-11.0)
[2023-10-31 20:13] LABS: Ferritin 12 ng/mL (11-264)
[2023-10-31 20:32] LABS: Neutrophils Absolute Manual 3015 /uL (3000-5900); RBC Morphology Norm; Total Cells Counted 100
== END ==
PROVIDERS: Family Provider Family Medicine; PCP Family Medicine; Visit Provider Family Medicine
DX: E61.1 Iron deficiency (principal); R25.2 Cramp and spasm; D64.9 Anemia, unspecified
CPT/HCPCS: 82728; 83540; 83550; 85025; 85045

== ENCOUNTER → 2023-11-03 06:40 | Outpatient (CLI) | payer MEDICARE, OTHER, SELFPAY | PROVIDERS: Family Provider Family Medicine; PCP Family Medicine; Referring Provider Family Medicine; Visit Provider Family Medicine | DX: E61.1 Iron deficiency (principal) | CPT/HCPCS: 82274 ==

== ENCOUNTER → 2023-11-17 10:32 | Outpatient (CLI) | payer MEDICARE, OTHER, SELFPAY ==
--- NOTE | 2023-11-17 11:30 | DI.CT.S_ITS ---
PROCEDURE: CT CHEST W CON INDICATIONS: increasing short of breath with history of lobectomy for lung ca -- TECHNIQUE: After the administration of intravenous contrast, 5 mm thick sections acquired from the pulmonary apices to the posterior costophrenic angles. 1 mm axial lung, 5 mm thick coronal and sagittal reformats and 7 mm axial MIP were acquired. For radiation dose reduction, the following was used: automated exposure control, adjustment of mA and/or kV according to patient size. COMPARISON: [facility], CR, XR CHEST 1 VIEW, 02/02/2023, 12:59. [facility], CT, CT ANGIO CHEST PE PROTOCOL, 01/19/2022, 9:44. FINDINGS: Image quality: Diagnostic. Lower Neck: No enlarged lymph nodes. Thyroid: No thyroid nodules which require sonographic follow up, per consensus guidelines. Axillae: No enlarged lymph nodes. 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 Bones: Age-appropriate bony degenerative changes are seen. Macrocytic Lungs and Pleura: Prior right lower lobectomy, with volume loss. Mild scarring changes can be seen at the right lung base. The left lung appears clear. No pneumothorax or pleural effusions are seen. No focal infiltrates are seen. Heart: Heart size is normal. No pericardial effusion. Thoracic Vessels: The aorta and pulmonary arteries demonstrate normal size. Mediastinum and Marilia: There is mild shift of the mediastinum to the left. No enlarged lymph nodes. Esophagus: No wall thickening. No hiatal hernia. Upper Abdomen: Visualized upper abdomen solid organs and bowel loops appear normal. IMPRESSION: No imaging explanation is found for this patient's presenting symptoms. No acute abnormality is seen. 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 There is associated shift of the mediastinum to the right. Dictated by: Miko Roberts M.D. on 11/17/2023 at 14:06 Approved by: Miko Roberts M.D. on 11/17/2023 at 14:08
== END ==
PROVIDERS: Family Provider Family Medicine; PCP Family Medicine; Referring Provider Family Medicine; Visit Provider Family Medicine
DX: C34.90 Malignant neoplasm of unspecified part of unspecified bronchus or lung (principal); J43.9 Emphysema, unspecified; R06.00 Dyspnea, unspecified; Z87.891 Personal history of nicotine dependence
CPT/HCPCS: 71260; Q9967

== ENCOUNTER → 2024-01-17 14:25 | Outpatient (CLI) | payer MEDICARE, OTHER, SELFPAY ==
[2024-01-17 18:52] LABS: Add Manual Diff / Slide Review NO; Basophils Absolute Auto 100 /uL (0-100); Eosinophils Absolute Auto 300 /uL (0-450); Eosinophils Percent Auto 3.3 % (2-4); Hematocrit 40.9 % (36-46); Hemoglobin 13.6 g/dL (12.0-16.0); Lymphocytes Absolute Auto 2400 /uL (1100-4500); Lymphocytes Percent Auto 29.8 % (25-40); Mean Corpuscular HGB Conc 33.3 % (30-36); Mean Corpuscular Hemoglobin 27.4 PG (26-34); Mean Corpuscular Volume 82.3 fL (80-100); Monocytes Absolute Auto 800 /uL (0-900); Monocytes Percent Auto 10.5 % (3-14); Neutrophils Absolute Auto 4400 /uL (1500-7000); Neutrophils Percent Auto 55.4 % (50-75); Platelet Count 360 X10^3/uL (150-400); Red Blood Cell Count 4.97 X10^6/uL (4.0-5.2)
[2024-01-17 18:55] LABS: HEMOLYSIS < 15 (0-50); Iron 174 ug/dL (37-170)
[2024-01-17 18:57] LABS: BUN Creatinine Ratio 20.2 (6-22); Blood Urea Nitrogen 17 mg/dL (7-17); Calcium 9.9 mg/dL (8.4-10.2); Carbon Dioxide 29 mmol/L (22-32); Chloride 103 mmol/L (98-107); Estimated Glomerular Filt Rate > 60 mL/min (>60); Glucose 103 mg/dL (80-110); HEMOLYSIS < 15 (0-50); Lactate Dehydrogenase 209 U/L (120-246); Potassium 4.7 mmol/L (3.4-5.1); Sodium 137 mmol/L (137-145)
[2024-01-17 19:10] LABS: Percent Iron Saturation 57 % (15-50); Total Iron Binding Capacity 306 ug/dL (265-497); Transferrin 293 mg/dL (206-381)
[2024-01-17 19:31] LABS: Ferritin 19 ng/mL (11-264)
[2024-01-19 03:36] LABS: Haptoglobin 116 mg/dL (42-346)
== END ==
PROVIDERS: Family Provider Family Medicine; PCP Family Medicine; Visit Provider Family Medicine
DX: R45.89 Other symptoms and signs involving emotional state (principal); E61.1 Iron deficiency; R73.03 Prediabetes; F41.1 Generalized anxiety disorder; D64.9 Anemia, unspecified
CPT/HCPCS: 80048; 82728; 83010; 83540; 83550; 83615; 85025

== ENCOUNTER → 2024-09-05 06:42 | Outpatient (CLI) | payer MEDICARE, OTHER, SELFPAY ==
--- NOTE | 2024-09-05 06:44 | DI.US.S_ITS ---
PROCEDURE: US ABDOMEN LIMITED INDICATIONS: RUQ PAIN TECHNIQUE: Real-time scanning was performed of the abdominal and retroperitoneal organs, with image documentation. COMPARISON: None. FINDINGS: Liver: Liver is normal in size and homogeneous in echotexture. Gallbladder: No gallstones. No wall thickening. No pericholecystic edema. Negative sonographic Quinteros's sign. Biliary ducts: Intrahepatic bile ducts are non-dilated. Extrahepatic bile duct caliber measures 7.5 mm. Normal is 6-7 mm or less in diameter, or 10 mm or less post-cholecystectomy. Pancreas: There is a pseudocyst centered within the uncinate process measuring 13 x 9 x 17 mm. Miscellaneous: No free abdominal fluid. IMPRESSION: Pancreatic pseudocyst measures up to 17 mm for which follow-up CT imaging is recommended as indicated. Dictated by: Niyah Moraes M.D. on 09/05/2024 at 12:32 Approved by: Niyah Moraes M.D. on 09/05/2024 at 12:35
== END ==
LOC: US 06:43
PROVIDERS: PCP Family Medicine; Referring Provider Family Medicine; Visit Provider Family Medicine
DX: K86.3 Pseudocyst of pancreas (principal); R79.89 Other specified abnormal findings of blood chemistry; R10.11 Right upper quadrant pain; R63.4 Abnormal weight loss
CPT/HCPCS: 76705

== ENCOUNTER → 2024-09-17 14:29 | Outpatient (CLI) | payer MEDICARE, OTHER, SELFPAY ==
[2024-09-17 19:56] LABS: Add Manual Diff / Slide Review NO; HEMOLYSIS < 15 (0-50); Hematocrit 42.3 % (36-46); Hemoglobin 13.8 g/dL (12.0-16.0); Iron 141 ug/dL (37-170); Lymphocytes Absolute Auto 1800 /uL (1100-4500); Mean Corpuscular HGB Conc 32.7 % (30-36); Mean Corpuscular Hemoglobin 27.6 PG (26-34); Mean Corpuscular Volume 84.5 fL (80-100); Platelet Count 322 X10^3/uL (150-400)
[2024-09-17 19:58] LABS: Alanine Aminotransferase 21 IU/L (<35); Albumin 4.4 g/dL (3.5-5.0); Albumin Globulin Ratio 1.7 (1.0-2.8); Alkaline Phosphatase 55 U/L (38-126); Blood Urea Nitrogen 19 mg/dL (7-17); Calcium 9.3 mg/dL (8.4-10.2); Carbon Dioxide 27 mmol/L (22-32); Chloride 102 mmol/L (98-107); Estimated Glomerular Filt Rate > 60 mL/min (>60); Globulin 2.6 g/dL (1.7-4.1); Glucose 104 mg/dL (70-99); HEMOLYSIS < 15 (0-50); Potassium 4.2 mmol/L (3.4-5.1); Sodium 137 mmol/L (137-145); Total Protein 7.0 g/dL (6.3-8.2)
[2024-09-17 20:11] LABS: Percent Iron Saturation 45 % (15-50); Total Iron Binding Capacity 312 ug/dL (265-497); Transferrin 259 mg/dL (206-381)
[2024-09-17 20:13] LABS: Hemoglobin A1C% w Est Avg Glu 5.8 % (4.0-6.0)
[2024-09-17 20:31] LABS: TSH w/ Reflex to FT4 1.35 uIU/mL (0.47-4.68)
[2024-09-17 20:34] LABS: Ferritin 38 ng/mL (11-264)
== END ==
PROVIDERS: PCP Family Medicine; Visit Provider Family Medicine
DX: R79.89 Other specified abnormal findings of blood chemistry (principal); R73.03 Prediabetes; K86.2 Cyst of pancreas; R25.2 Cramp and spasm; E61.1 Iron deficiency; R63.4 Abnormal weight loss; D64.9 Anemia, unspecified
CPT/HCPCS: 80053; 82728; 83036; 83540; 83550; 84443; 85025

== ENCOUNTER → 2024-10-24 13:10 | Outpatient (CLI) | payer MEDICARE, OTHER, SELFPAY | PROVIDERS: PCP Family Medicine; Visit Provider Nurse Practitioner Adult Health | DX: R35.0 Frequency of micturition (principal); R39.15 Urgency of urination | CPT/HCPCS: 87086 ==